=== PATIENT | female | born 1995 | race Caucasian/White ===

== ENCOUNTER 2023-05-04 10:02 | Outpatient (RCR) | payer BC, SELFPAY ==
[2023-05-05 07:54] VITALS: BP 138/80; PULSE 92; RESP 18; TEMP 36.5; O2SAT 98
[2023-05-05] MEDS: RHO(D) IMMUNE GLOBULIN 1,500 UNIT SYRINGE 1500 UNIT IM (08:02)
--- NOTE | 2023-05-05 08:14 | PC.NURSE ---
Patient is here for [facility], she had her blood work completed yesterday. She denies any issues or concerns, she tolerated the injection well and was discharged home.
== END 2023-05-25 17:49 | disposition home or self-care (01) ==
LOC: LAB 10:02
PROVIDERS: Family Provider Family Medicine; Visit Provider Midwife
DX: O26.899 Other specified pregnancy related conditions, unspecified trimester (principal); Z67.91 Unspecified blood type, Rh negative
CPT/HCPCS: 36415; 86900; 86901; 96372; J2790

== ENCOUNTER 2023-07-06 18:20 | Outpatient (OUT) | payer BC, SELFPAY ==
[2023-07-06 19:46] VITALS: BP 126/75; PULSE 91; TEMP 36.4
[2023-07-06 20:06] LABS: Bilirubin Urine NEGATIVE (NEGATIVE); Blood Urine NEGATIVE (NEGATIVE); Clarity Urine CLEAR (CLEAR); Color Urine LT. YELLOW (YELLOW); Glucose Urine UA NEGATIVE (NEGATIVE); Ketones Urine NEGATIVE (NEGATIVE); Leukocyte Esterase Urine MODERATE (NEGATIVE); Nitrite Urine NEGATIVE (NEGATIVE); Protein Urine NEGATIVE (NEG/TRACE); Specific Gravity Urine <=1.005 (1.005-1.025); Urine Microscopic Indicated YES; Urobilinogen Urine 0.2 EU/dL (0.2-1.0)
[2023-07-06 20:16] LABS: Bacteria Urine TRACE #/HPF (NONE SEEN); Cast Seen? NONE SEEN #/LPF (NONE SEEN); Crystals Seen? None Seen #/HPF (None Seen); Mucus Urine NONE SEEN (NONE SEEN); RBC Urine 0-2 #/HPF (0-2); Squamous Epithelial Cell Urine FEW #/LPF (NONE/RARE); Urine Culture Indicated YES
== END 2023-07-06 20:52 | disposition home or self-care (01) ==
LOC: FBCO 18:30 → FBC 19:28
PROVIDERS: Family Provider Family Medicine; Visit Provider Midwife
DX: O26.899 Other specified pregnancy related conditions, unspecified trimester (principal); R10.9 Unspecified abdominal pain; Z3A.00 Weeks of gestation of pregnancy not specified
CPT/HCPCS: 81001; 87086

== ENCOUNTER 2023-07-17 18:02 | Inpatient (IN) | payer BC, SELFPAY ==
[2023-07-17 19:32] LABS: Hematocrit 35.8 % (36.0-48.0); Hemoglobin 11.5 g/dL (12.0-16.0); Mean Corpuscular HGB Conc 32.1 g/dL (29.9-35.2); Mean Corpuscular Hemoglobin 25.2 pg (26.7-34.0); Mean Corpuscular Volume 78.3 fL (81.0-99.0); Mean Platelet Volume 10.7 fL (9.5-13.5); Platelet Count 216 10^3/uL (150-450); Red Blood Count 4.57 10^6/uL (4.20-5.40); Red Cell Distribution Width 15.1 % (11.0-15.0)
[2023-07-17 19:34] VITALS: BP 144/81; PULSE 83; RESP 18; TEMP 36.5
[2023-07-17 19:35] VITALS: BP 144/81; PULSE 83
[2023-07-17 19:47] LABS: Amphetamine Screen Urine NEGATIVE (NEGATIVE); Barbiturates Screen Urine NEGATIVE (NEGATIVE); Benzodiazepines Screen Urine NEGATIVE (NEGATIVE); Buprenorphine Screen Urine NEGATIVE (NEGATIVE); Cannabinoid Screen Urine NEGATIVE (NEGATIVE); Cocaine Screen Urine NEGATIVE (NEGATIVE); Methadone Screen Urine NEGATIVE (NEGATIVE); Methamphetamines Screen Urine NEGATIVE (NEGATIVE); Opiate Screen Urine NEGATIVE (NEGATIVE); Oxycodone Screen Urine NEGATIVE (NEGATIVE); Phencyclidine Screen Urine NEGATIVE (NEGATIVE); Tricyclic Antidepressant Urine NEGATIVE (NEGATIVE)
[2023-07-17] MEDS: 0.9 % SODIUM CHLORIDE 1,000 ML 125 ML IV (23:08)
[2023-07-17] MEDS: OXYTOCIN 10 UNIT in 0.9 % SODIUM CHLORIDE 500 ML 6.012 UNIT IV (23:09)
[2023-07-17 23:12] VITALS: BP 140/88; PULSE 86; RESP 16; TEMP 36.4
[2023-07-17] MEDS: ACETAMINOPHEN 500 MG TABLET 1000 MG PO (23:38)
[2023-07-18] VITALS (56 sets, daily range): BP systolic 89–244; BP diastolic 50–155; PULSE 76–142; RESP 16–20; TEMP 36.1–36.9
[2023-07-18] MEDS: 0.9 % SODIUM CHLORIDE 1,000 ML 125 ML IV (03:34)
[2023-07-18] MEDS: FENTANYL CITRATE/PF 100 MCG/2 ML VIAL EPIDURAL ×2 (04:28)
[2023-07-18] MEDS: LIDOCAINE HCL 2% PF 100 MG/5 ML VIAL INJ (04:28)
[2023-07-18] MEDS: ROPIVACAINE HCL/PF 400 MG/200 ML PREMIX 6 MG EPIDURAL (04:28)
[2023-07-18] MEDS: EPHEDRINE SULFATE 50 MG/ML VIAL IV (04:47)
[2023-07-18] MEDS: ONDANSETRON PF 4 MG/2 ML VIAL IV (04:47)
--- NOTE | 2023-07-18 11:06 | PM.OBPRCVD ---
Procedure Intrapartal events: None Induction method: per pitocin protocol (low dose pitocin protocol ) Delivery augmentation: rupture of membranes Delivery monitor: external FHT and external uterine Route of delivery: Episiotomy Description: none Laceration description: perineal - 1st degree Delivery repair: Vicryl Estimated blood loss (mL): 300 Anesthesia type: Epidural Disposition: no change Delivery date: 07/18/23 Gender: male presentation: vertex Placental delivery description: Spontaneous (intact ) heart rate - 1 minute: 100 bpm or Greater respiratory effort - 1 minute: Spontaneous/Strong Cry muscle tone - 1 minute: Active Movement reflex response - 1 minute: Prompt Response color - 1 minute: Bluish Hands or Feet total score - 1 minute: 9 heart rate - 5 minute: 100 bpm or Greater respiratory effort - 5 minute: Spontaneous/Strong Cry muscle tone - 5 minute: Active Movement reflex response - 5 minute: Prompt Response color - 5 minute: Bluish Hands or Feet total score - 5 minute: 9
--- NOTE | 2023-07-18 12:23 | PC.NURSE ---
Small bleeding with fundal check
[2023-07-18] MEDS: IBUPROFEN 400 MG TABLET 800 MG PO ×2 (12:55→21:59)
--- NOTE | 2023-07-18 14:15 | PC.NURSE ---
Epidural removed with tip intact. NB to breast, Pt denies further needs
[2023-07-18] MEDS: BENZOCAINE/MENTHOL 85 GRAM SPRAY BOTTLE 1 APPLIC TOPICAL (15:17)
[2023-07-19 02:20] VITALS: BP 140/83; PULSE 77
[2023-07-19] MEDS: IBUPROFEN 400 MG TABLET 800 MG PO ×2 (06:45→15:15)
[2023-07-19 07:07] LABS: Basophils Absolute Auto 0.1 10^3/uL (0.0-0.1); Basophils Percent Auto 0.5 % (0.2-2.0); Eosinophils Absolute Auto 0.1 10^3/uL (0.0-0.7); Hematocrit 30.8 % (36.0-48.0); Hemoglobin 9.8 g/dL (12.0-16.0); Immature Granulocytes Abs Auto 0.11 10^3/uL (0.00-0.03); Lymphocytes Percent Auto 18.9 % (20.5-60.0); Mean Corpuscular HGB Conc 31.8 g/dL (29.9-35.2); Mean Corpuscular Volume 78.6 fL (81.0-99.0); Mean Platelet Volume 11.2 fL (9.5-13.5); Monocytes Absolute Auto 0.8 10^3/uL (0.3-0.8); Monocytes Percent Auto 6.9 % (1.7-12.0); Neutrophils Absolute Auto 7.8 10^3/uL (1.4-6.5); Neutrophils Percent Auto 71.7 % (43.0-75.0); Platelet Count 182 10^3/uL (150-450); Red Blood Count 3.92 10^6/uL (4.20-5.40); Red Cell Distribution Width 15.6 % (11.0-15.0); White Blood Count 10.8 10^3/uL (4.0-11.0)
--- NOTE | 2023-07-19 07:31 | W.PC.ACHO ---
Registration Status: ADM IN Primary Language: Vietnamese Preferred Language: Vietnamese Active Medications Generic Name Dose Route Start Last Admin Trade Name Freq PRN Reason Stop Dose Admin Acetaminophen 1,000 mg 07/17/23 22:32 07/17/23 23:38 Acetaminophen 500 Mg Tablet PO 1,000 mg Q6H PRN Administration Pain Al Hydroxide/Mg Hydroxide 2,400 mg 07/18/23 11:15 Magnesium Hydroxide 2,400 Mg/10 Ml Oral.Susp PO Q6H PRN Dyspepsia Benzocaine/Menthol 1 applic 07/18/23 11:15 07/18/23 15:17 Benzocaine/Menthol 85 Gram Pierce Bottle TOPICAL 1 applic Q2H PRN Administration Pain Calcium Carbonate 500 mg 07/17/23 22:32 Calcium Carbonate 500 Mg (200mg Elemental) Tab Chew PO TID PRN dyspepsia Carboprost Tromethamine 250 mcg 07/17/23 18:38 Carboprost Tromethamine 250 Mcg/Ml 1 Ml Vial IM 07/19/23 18:39 Q15M PRN Bleeding Carboprost Tromethamine 250 mcg 07/17/23 20:00 Carboprost Tromethamine 250 Mcg/Ml 1 Ml Vial IM 07/19/23 20:01 Q15M PRN Bleeding Docusate Sodium 100 mg 07/19/23 09:00 Docusate Sodium 100 Mg Capsule PO BID CARLOS Fentanyl Citrate 100 mcg 07/17/23 19:57 07/18/23 04:28 Fentanyl Citrate/Pf 100 Mcg/2 Ml Vial EPIDURAL 100 mcg ONCE PRN Administration epidural Fentanyl Citrate 100 mcg 07/17/23 19:57 07/18/23 04:28 Fentanyl Citrate/Pf 100 Mcg/2 Ml Vial EPIDURAL 100 mcg ONCE PRN Administration epidural Oxytocin 10 unit/ Sodium 501 mls @ 6.012 mls/hr 07/17/23 23:00 07/17/23 23:09 Chloride IV 2 milliunit/min Q24H CARLOS 6.012 mls/hr Administration 2 MILLIUNIT/MIN Sodium Chloride 1,000 mls @ 125 mls/hr 07/17/23 20:00 07/18/23 03:34 Sodium Chloride 0.9% 1,000 Ml IV 125 mls/hr .Q8H PRN Administration Labor Induction Ropivacaine/Sodium Chloride 400 mg in 200 mls @ 6 mls/hr 07/17/23 21:15 07/18/23 04:28 Naropin 0.2% 400 Mg/200 Ml Bag EPIDURAL 6 mls/hr Q24H PRN Administration Labor Pain Ibuprofen 800 mg 07/18/23 12:00 07/19/23 06:45 Ibuprofen 400 Mg Tablet PO 800 mg TID CARLOS Administration Lidocaine 5 ml 07/17/23 18:38 Lidocaine Viscous 2% 15 Ml Solution TOPICAL ONCE PRN Pain Lidocaine 1 ml 07/17/23 18:38 Lidocaine Hcl 1% 200 Mg/20 Ml Mdv INJ ONCE PRN Pain Lidocaine 1 ml 07/17/23 20:00 Lidocaine Hcl 1% 200 Mg/20 Ml Mdv INJ ONCE PRN Pain Lidocaine 5 ml 07/17/23 20:00 Lidocaine Viscous 2% 15 Ml Solution TOPICAL ONCE PRN Pain Methylergonovine Maleate 0.2 mg 07/17/23 18:38 Methylergonovine Maleate 0.2 Mg/Ml Ampule IM 07/19/23 18:39 ONCE PRN Uterine Contractility/Contract Methylergonovine Maleate 0.2 mg 07/17/23 18:38 Methylergonovine Maleate 0.2 Mg Tablet PO 07/19/23 18:39 Q4H PRN Uterine Contractility/Contract Misoprostol 600 mcg 07/17/23 18:38 Misoprostol 100 Mcg Tablet PO 07/19/23 18:39 ONCE PRN Uterine Bleeding Misoprostol 800 mcg 07/17/23 18:38 Misoprostol 100 Mcg Tablet SL 07/19/23 18:39 ONCE PRN Uterine Bleeding Misoprostol 1,000 mcg 07/17/23 18:38 Misoprostol 100 Mcg Tablet KS 07/19/23 18:39 ONCE PRN Uterine Bleeding Ondansetron HCl 4 mg 07/17/23 18:38 07/18/23 04:47 Ondansetron Pf 4 Mg/2 Ml Vial IV 4 mg Q6H PRN Administration Nausea And Vomiting Ondansetron HCl 4 mg 07/17/23 18:38 Ondansetron 4 Mg Rapdis Tablet SL Q6H PRN Nausea And Vomiting Oxytocin 10 unit 07/17/23 18:38 Oxytocin 10 Unit/Ml Vial IM 07/19/23 18:39 ONCE PRN bleeding Senna 17.2 mg 07/18/23 20:00 Sennosides 8.6 Mg Tablet PO QHS PRN Constipation Simethicone 80 mg 10/24/23 11:15 Simethicone 80 Mg Tab.Chew PO QID PRN Abdominal Distention Temazepam 15 mg 07/18/23 20:00 Temazepam 15 Mg Capsule PO QHS PRN Sleep Witch [place]/Glycerin 1 pad 07/18/23 11:15 Glycerin/Witch [place] Pads TOPICAL Q2H PRN Pain Zolpidem Tartrate 5 mg 07/18/23 20:00 Zolpidem Tartrate 5 Mg Tablet PO HS PRN sleep Diet Category Date Time Status Regular Consistency Diet Diet 07/18/23 11:15 Active Respiratory Oxygen Delivery Method Room Air Cardiology Heart Sounds Strong,Regular Bowels Bowel Pattern No Bowel Movement Renal Bladder Pattern Continent Catheter Date Urinary Catheter Removed 07/18/23
--- NOTE | 2023-07-19 08:04 | P.OBPN_ITS ---
OB - PN: Subj Subjective Patient comments: no complaints and pain well controlled [place] status: doing well Exam Constitutional Vital Signs, click to edit/add: Last Vital Signs Temp 98.1 F 07/18/23 23:43 Pulse 77 07/19/23 02:20 Resp 16 07/18/23 23:43 BP 140/83 07/19/23 02:20 O2 Del Method Room Air 07/18/23 23:43 Documenting provider has reviewed patient's vital signs: yes Common normals: no apparent distress Respiratory Common normals: normal respiratory effort and clear to auscultation bilaterally Cardio Common normals: regular rate and regular rhythm GI Common normals: Normal to inspection, nondistended, normoactive bowel sounds present Extremity Common normals: no calf tenderness Results Labs Labs: Short CBC 07/19/23 Range/Units 05:45 WBC 10.8 (4.0-11.0) 10^3/uL Hgb 9.8 L (12.0-16.0) g/dL Hct 30.8 L (36.0-48.0) % Plt Count 182 (150-450) 10^3/uL OB - PN: A/P Plan - Vaginal Delivery day: 2 Plan: routine care, discharge home and follow up 6 weeks Time Spent with Patient Time: Total time spent is greater than 50% in coordination of care (as documented) at patient's floor/unit and/or counseling patient: Total time spent with greater than 50% in coordination of care (as documented) at patient's floor/unit and/or counseling patient: less than 15 minutes
[2023-07-19] MEDS: DOCUSATE SODIUM 100 MG CAPSULE PO (09:39)
[2023-07-19] MEDS: RHO(D) IMMUNE GLOBULIN 1,500 UNIT SYRINGE 1500 UNIT IV (09:40)
== END 2023-07-19 16:20 | disposition home or self-care (01) | DRG 807 ==
PROVIDERS: Obstetrics & Gynecology; Admitting Provider Midwife; Family Provider Family Medicine; Visit Provider Midwife
DX: O70.0 First degree perineal laceration during delivery (principal); Z37.0 Single live birth; Z3A.39 39 weeks gestation of pregnancy; Z87.891 Personal history of nicotine dependence; Z83.3 Family history of diabetes mellitus; Z82.49 Family history of ischemic heart disease and other diseases of the circulatory system
CPT/HCPCS: 36415; 51702; 59050; 59410; 80307; 85025; 85027; 85461; 86850; 86900; 86901; 96372; 96374; 96375; 96376; J2790